=== PATIENT | male | born 1940 | race Caucasian/White ===

== ENCOUNTER → 2020-06-25 | Outpatient (CLI) | payer MEDICARE, OTHER | LOC: LAB 10:34 | PROVIDERS: Internal Medicine Nephrology | DX: N18.30 Chronic kidney disease, stage 3 unspecified (principal); E83.42 Hypomagnesemia | CPT/HCPCS: 36415; 80053; 82570; 83735; 84156 ==

== ENCOUNTER → 2020-09-26 | Outpatient (CLI) | payer MEDICARE, OTHER | LOC: LAB 09:45 | PROVIDERS: Internal Medicine Nephrology | DX: N18.30 Chronic kidney disease, stage 3 unspecified (principal); N25.81 Secondary hyperparathyroidism of renal origin | CPT/HCPCS: 36415; 80053; 82570; 83735; 83970; 84156 ==

== ENCOUNTER → 2020-11-14 | Outpatient (CLI) | payer MEDICARE, OTHER | LOC: ECHO 09:31 | DX: R60.0 Localized edema (principal); I08.3 Combined rheumatic disorders of mitral, aortic and tricuspid valves | CPT/HCPCS: ECHO; 93306 ==

== ENCOUNTER → 2020-11-27 | Outpatient (CLI) | payer MEDICARE, OTHER | LOC: KOH-I 08:48 | DX: M25.561 Pain in right knee (principal); S83.231A Complex tear of medial meniscus, current injury, right knee, initial encounter | CPT/HCPCS: 73721 ==

== ENCOUNTER → 2021-02-25 | Outpatient (CLI) | payer MEDICARE, OTHER | LOC: LAB 09:43 | PROVIDERS: Internal Medicine Nephrology | DX: N18.30 Chronic kidney disease, stage 3 unspecified (principal); E83.42 Hypomagnesemia; N25.81 Secondary hyperparathyroidism of renal origin; E87.6 Hypokalemia | CPT/HCPCS: 36415; 80053; 82570; 83735; 83970; 84156 ==

== ENCOUNTER 2021-06-19 14:24 | Emergency (ER) | payer MEDICARE, OTHER ==
[~2021-06-19] VITALS: Ht 177.8 cm; Wt 99.8 kg
[2021-06-19 17:51] LABS: HEMOGLOBIN 13.9 gm/dl (14.0-17.5); RED BLOOD COUNT 4.52 M/UL (4.20-5.50); WHITE BLOOD COUNT 6.2 K/UL (4.5-11.0)
[2021-06-19 18:09] LABS: BUN/CREATININE RATIO 14 (0-10)
[2021-06-19] MEDS ORDERED: PULMICORT FLE180 MCG INH (19:02)
== END 2021-06-19 21:00 | disposition home or self-care (01) ==
LOC: ER1 14:24
PROVIDERS: Nurse Practitioner
DX: U07.1 COVID-19 (principal); Z23 Encounter for immunization; J44.9 Chronic obstructive pulmonary disease, unspecified; I12.9 Hypertensive chronic kidney disease with stage 1 through stage 4 chronic kidney disease, or unspecified chronic kidney disease; N18.9 Chronic kidney disease, unspecified; E11.22 Type 2 diabetes mellitus with diabetic chronic kidney disease; Z88.0 Allergy status to penicillin
CPT/HCPCS: 71045; 80048; 82550; 82553; 82728; 83605; 83874; 84484; 85025; 85652; 86140; 93005; 94664; 99284; M0245

== ENCOUNTER 2021-06-27 08:17 | Inpatient (IN) | payer MEDICARE, OTHER ==
[~2021-06-27] VITALS: Ht 180.3 cm; Wt 95.3 kg
[~2021-06-27 08:17] MED LIST: PULMICORT FLE180 MCG INH
[2021-06-27 08:53] LABS: HEMOGLOBIN 13.9 gm/dl (14.0-17.5); RED BLOOD COUNT 4.51 M/UL (4.20-5.50); WHITE BLOOD COUNT 10.9 K/UL (4.5-11.0)
[2021-06-27] MEDS ORDERED: AMLODIPINE BESY10 MG PO (13:15)
[2021-06-27] MEDS ORDERED: LOPRESSOR 25 MG25 MG PO (13:16)
[2021-06-27] MEDS ORDERED: ATORVASTATIN CA40 MG PO (13:16)
[2021-06-27] MEDS ORDERED: LANTUS SOL100 UNIT/1 SQ (13:20)
[2021-06-27] MEDS ORDERED: POTASSIUM CHLO10 ME1 PO (13:20)
[2021-06-27] MEDS ORDERED: ALDACTONE 25MG25 MG PO (13:21)
[2021-06-27] MEDS ORDERED: NOVOLOG FL100 UNIT/1 INJ (13:21)
[2021-06-27] MEDS ORDERED: LOSARTAN POTAS100 MG PO (13:22)
[2021-06-28 05:24] LABS: HEMOGLOBIN 12.8 gm/dl (14.0-17.5); RED BLOOD COUNT 4.35 M/UL (4.20-5.50); WHITE BLOOD COUNT 15.7 K/UL (4.5-11.0)
--- NOTE | 2021-06-28 11:09 | NUR ---
PATIENT OXYGEN SAT 88% ON ROOM AIR.
[2021-06-30] MEDS ORDERED: PROVENTIL HFA6.7 GM INH (09:31)
[2021-06-30] MEDS ORDERED: SYMBICORT 80-41 INHA INH (09:31)
[2021-06-30] MEDS ORDERED: LEVOFLOXACIN500 MG PO (09:31)
[2021-06-30] MEDS ORDERED: LOPRESSOR 25 MG25 MG PO (09:31)
== END 2021-06-30 11:11 | disposition home or self-care (01) | DRG 189 ==
LOC: ER1 08:17 → MED SURG 4 11:49 → CDU 11:49 → 3 EAST 20:23 → MED SURG 4 06-28 14:16
PROVIDERS: Physician Assistant Medical; ADMIT Internal Medicine Infectious Disease
PROC: 3E0333Z Introduction of Anti-inflammatory into Peripheral Vein, Percutaneous Approach (ICD-10-PCS; principal; 2021-06-27)
DX: J96.01 Acute respiratory failure with hypoxia (principal); J44.1 Chronic obstructive pulmonary disease with (acute) exacerbation; E66.2 Morbid (severe) obesity with alveolar hypoventilation; Z20.822 Contact with and (suspected) exposure to COVID-19; N17.9 Acute kidney failure, unspecified; J44.0 Chronic obstructive pulmonary disease with (acute) lower respiratory infection; J20.9 Acute bronchitis, unspecified; E11.65 Type 2 diabetes mellitus with hyperglycemia; N18.30 Chronic kidney disease, stage 3 unspecified; I12.9 Hypertensive chronic kidney disease with stage 1 through stage 4 chronic kidney disease, or unspecified chronic kidney disease; G47.33 Obstructive sleep apnea (adult) (pediatric); E11.22 Type 2 diabetes mellitus with diabetic chronic kidney disease; E78.5 Hyperlipidemia, unspecified; Z79.4 Long term (current) use of insulin; Z87.891 Personal history of nicotine dependence; Z90.49 Acquired absence of other specified parts of digestive tract; Z88.0 Allergy status to penicillin; Z68.31 Body mass index [BMI] 31.0-31.9, adult
CPT/HCPCS: 36415; 71045; 80048; 80053; 82550; 82553; 82962; 83036; 83605; 83874; 83880; 84484; 85025; 85379; 85610; 87040; 87070; 87205; 93005; 94640; 94664; 94760; 96374; 97116; 97161; 99285; J1100; J1650; J1940; J1956; J2920; J7030; U0002

== ENCOUNTER → 2021-12-25 | Outpatient (CLI) | payer MEDICARE, OTHER ==
[~2021-12-25] MED LIST changes: +ALDACTONE 25MG25 MG PO; +AMLODIPINE BESY10 MG PO; +ATORVASTATIN CA40 MG PO; +LANTUS SOL100 UNIT/1 SQ; +LEVOFLOXACIN500 MG PO; +LOPRESSOR 25 MG25 MG PO; +LOSARTAN POTAS100 MG PO; +NOVOLOG FL100 UNIT/1 INJ; +POTASSIUM CHLO10 ME1 PO; +PROVENTIL HFA6.7 GM INH; +SYMBICORT 80-41 INHA INH
[2021-12-25 09:01] LABS: HEMOGLOBIN 14.1 gm/dl (14.0-17.5); RED BLOOD COUNT 4.63 M/UL (4.20-5.50); WHITE BLOOD COUNT 9.3 K/UL (4.5-11.0)
== END ==
LOC: MRI 12-17 08:30
PROVIDERS: Ophthalmology
DX: H49.21 Sixth [abducent] nerve palsy, right eye (principal); H49.01 Third [oculomotor] nerve palsy, right eye; H70.93 Unspecified mastoiditis, bilateral
CPT/HCPCS: 36415; 70544; 70553; 82565; 84520; 85025; 85652; 86140; A9577

== ENCOUNTER 2022-02-01 23:56 | Emergency (ER) | payer MEDICARE, OTHER ==
[2022-02-02 02:39] LABS: HEMOGLOBIN 13.7 gm/dl (14.0-17.5); RED BLOOD COUNT 4.57 M/UL (4.20-5.50); WHITE BLOOD COUNT 3.1 K/UL (4.5-11.0)
[2022-02-02] MEDS ORDERED: ZOFRAN ODT 4 MG4 MG PO (06:08)
== END 2022-02-02 06:19 | disposition home or self-care (01) ==
LOC: ER1 23:56
DX: R53.83 Other fatigue (principal); R50.9 Fever, unspecified; R10.9 Unspecified abdominal pain; R19.7 Diarrhea, unspecified; E11.9 Type 2 diabetes mellitus without complications; I10 Essential (primary) hypertension; Z88.0 Allergy status to penicillin; Z20.822 Contact with and (suspected) exposure to COVID-19
CPT/HCPCS: 0240U; 71045; 80053; 81001; 82550; 82553; 83605; 83690; 83735; 84484; 85025; 87086; 93005; 96374; 99284; J2405